=== PATIENT | male | born 1990 | race African-American/Black ===

== ENCOUNTER 2017-12-29 15:30 | Inpatient (IN) | payer BC ==
[2017-12-29 17:29] VITALS: BMI 23.5
--- NOTE | 2017-12-29 20:06 | HP ---
CIWA Score - CIWA Score Nausea/Vomitin-No Nausea/No Vomiting Muscle Tremors: 4-Moderate,w/Arms Extend Anxiety: 4-Mod. Anxious/Guarded Agitation: 4-Moderately Restless Paroxysmal Sweats: 3 Orientation: 3-Disoriented Date>2 days Tacttile Disturbances: 0-None Auditory Disturbances: 0-None Visual Disturbances: 0-None Headache: 0-None Present CIWA-Ar Total Score: 18 Admission ROS BHS - HPI Chief Complaint: SEEKING DETOX FOR ALCOHOL R/T WITHDRAWAL SX'S Allergies/Adverse Reactions: Allergies Allergy/AdvReac Type Severity Reaction Status Date / Time bromide salts Allergy Verified 12/29/17 17:53 iodine Allergy Verified 12/29/17 17:54 lithium Allergy Swelling Verified 12/29/17 17:52 shellfish derived Allergy Verified 12/29/17 17:54 History of Present Illness: 27 Y.O. MALE WITH HX/O ALCOHOLISM HERE [facility] DETOX. CLIENT WAS REFERRED BY HIS RESIDENCE. HE REPORTS THIS IS HIS FIRST TIME IN INPATIENT TXMENT. DENIES ANY SIGNIFICANT PERIOD OF CLEAN TIME. DENIES HX/O SEIZURES, BLACK OUTS, A/V HALLUCINATIONS AND SI/HI. DENIES LEGALS Exam Limitations: No Limitations - Ebola screening Have you traveled outside of the country in the last 21 days: No (N) Have you had contact with anyone from an Ebola affected area: No Have you been sick,other than usual withdrawal symptoms: No Do you have a fever: No - Review of Systems Constitutional: No Symptoms Reported EENT: reports: No Symptoms Reported Respiratory: reports: No Symptoms reported Cardiac: reports: No Symptoms Reported GI: reports: No Symptoms Reported : reports: No Symptoms Reported Musculoskeletal: reports: No Symptoms Reported Integumentary: reports: No Symptoms Reported Neuro: reports: No Symptoms reported Endocrine: reports: No Symptoms Reported Hematology: reports: No Symptoms Reported Psychiatric: reports: other (SCHIZOPHRENIA, PARANOID DELUSIONAL) Other Systems: Reviewed and Negative Patient History - Patient Medical History Hx Anemia: No Hx Asthma: No Hx Chronic Obstructive Pulmonary Disease (COPD): No Hx Cancer: No Hx Cardiac Disorders: No Hx Congestive Heart Failure: No Hx Hypertension: No Hx Hypercholesterolemia: No Hx Pacemaker: No HX Cerebrovascular Accident: No Hx Seizures: No Hx Dementia: No Hx Diabetes: No Hx Gastrointestinal Disorders: No Hx Liver Disease: No Hx Genitourinary Disorders: No Hx Sexually Transmitted Disorders: No Hx Renal Disease (ESRD): No Hx Thyroid Disease: No Hx Human Immunodeficiency Virus (HIV): No Hx Hepatitis C: No Hx Depression: No Hx Suicide Attempt: No Hx Bipolar Disorder: No Hx Schizophrenia: Yes (NOT ON MEDICATION) - Patient Surgical History Past Surgical History: No Hx Neurologic Surgery: No Hx Cataract Extraction: No Hx Cardiac Surgery: No Hx Lung Surgery: No Hx Breast Surgery: No Hx Breast Biopsy: No Hx Abdominal Surgery: No Hx Appendectomy: No Hx Cholecystectomy: No Hx Genitourinary Surgery: No Hx Section: No Hx Orthopedic Surgery: No Anesthesia Reaction: No - PPD History Previous Implant?: Yes Documented Results: Negative w/o proof Implanted On Prior [facility] Admission?: No PPD to be Administered?: Yes - Smoking Cessation Smoking history: Former smoker Have you smoked in the past 12 months: No Hx Chewing Tobacco Use: No Initiated information on smoking cessation: No - Substance & Tx. History Hx Alcohol Use: Yes Hx Substance Use: Yes Substance Use Type: Alcohol Hx Substance Use Treatment: No - Substances Abused Alcohol Route: Oral Frequency: Daily Amount used: 1 six pack of budlApogenixt beer, Age of first use: 13 Date of Last Use: 12/27/17 Family Disease History - Family Disease History Family History: Denies Admission Physical Exam BHS - Vital Signs Vital Signs: Vital Signs - 24 hr 12/29/17 17:28 Temperature 98.7 F Pulse Rate 110 H Respiratory 19 Rate Blood Pressure 115/82 - Physical General Appearance: Yes: Appropriately Dressed, Tremorous (FELT), Anxious HEENTM: Yes: EOMI, Normal ENT Inspection, Normocephalic, Normal Voice, FREDA, Pharynx Normal Respiratory: Yes: Chest Non-Tender, Lungs Clear, Normal Breath Sounds, No Respiratory Distress, No Accessory Muscle Use Neck: Yes: No masses,lesions,Nodules, Supple, Trachea in good position Breast: Yes: Breast Exam Deferred Cardiology: Yes: Regular Rhythm, Regular Rate, S1, S2 Abdominal: Yes: Normal Bowel Sounds, Non Tender, Flat, Soft Genitourinary: Yes: Within Normal Limits Back: Yes: Normal Inspection Musculoskeletal: Yes: full range of Motion, Gait Steady Extremities: Yes: Normal Capillary Refill, Normal Inspection, Normal Range of Motion, Non-Tender, Tremors (FELT) Neurological: Yes: Alert, Motor Strength 5/5, Disoriented (TO DATE) Integumentary: Yes: Normal Color, Warm, Moist Lymphatic: Yes: Within Normal Limits - Diagnostic (1) Alcohol dependence with uncomplicated withdrawal Current Visit: Yes Status: Acute (2) Schizophrenia Current Visit: Yes Status: Suspected Qualifiers: Schizophrenia type: unspecified Qualified Code(s): F20.9 - Schizophrenia, unspecified Cleared for Admission [facility] - Detox or Rehab [facility] Level of Care: Medically Managed Detox Regimen/Protocol: Brinda Claeared for Rehab Admission: No S Breath Alcohol Content Breath Alcohol Content: 0 Urine Drug Screen - Results Drug Screen Negative: Yes
[2017-12-29] MEDS ORDERED: P-EPHED 60MG/TRIPROLIDI 2.5MG TABLET PO PRN (20:18)
[2017-12-29] MEDS ORDERED: MAG HYDROX/AL HYDROX/SIMETH 30 ML UNIT-DOSE CUP PO PRN (20:18)
[2017-12-29] MEDS ORDERED: MENTHOL/PHENOL 1 EACH UD MM PRN (20:18)
[2017-12-29] MEDS ORDERED: MAGNESIUM HYDROX 2400MG/30ML ORAL SUSPENSION 30 ML CUP PO PRN (20:18)
[2017-12-29] MEDS ORDERED: chlordiazePOXIDE HCL 25 MG CAPSULE PO PRN (20:18)
[2017-12-29] MEDS ORDERED: MAGNESIUM CITRATE 300 ML BOTTLE PO PRN (20:18)
[2017-12-29] MEDS ORDERED: LOPERAMIDE HCL 2 MG CAPSULE PO PRN (20:18)
[2017-12-29] MEDS ORDERED: guaiFENesin/D-METHORPHAN HB 10 ML UNIT-DOSE CUPS PO PRN (20:18)
[2017-12-29] MEDS ORDERED: hydrOXYzine PAMOATE 50 MG CAPSULE (FP) PO PRN (20:18)
[2017-12-29] MEDS ORDERED: IBUPROFEN 400 MG TABLET (FP) PO PRN (20:18)
[2017-12-29] MEDS ORDERED: ACETAMINOPHEN 325 MG TABLET (FP) PO PRN (20:18)
[2017-12-29] MEDS ORDERED: MELATONIN 5 MG TABLETS PO PRN (22:00)
[2017-12-29] MEDS: THIAMINE HCL 100 MG TABLET (FP) PO SCH (22:31)
[2017-12-29] MEDS: chlordiazePOXIDE HCL 25 MG CAPSULE PO SCH (22:32)
[2017-12-30 02:25] LABS: URINE APPEARANCE CLEAR; URINE BILIRUBIN NEGATIVE (<2.0 mg/dL); URINE COLOR AMBER; URINE GLUCOSE (UA) NEGATIVE (NEGATIVE); URINE KETONE TRACE (NEGATIVE); URINE LEUK ESTERASE NEGATIVE (NEGATIVE); URINE NITRITE NEGATIVE (NEGATIVE); URINE PROTEIN NEGATIVE (NEGATIVE)
[2017-12-30] MEDS: chlordiazePOXIDE HCL 25 MG CAPSULE PO SCH ×4 (05:30→22:19)
--- NOTE | 2017-12-30 09:02 | EKG ---
Test Reason : Blood Pressure : / mmHG Vent. Rate : 078 BPM Atrial Rate : 078 BPM P-R Int : 130 ms QRS Dur : 094 ms QT Int : 346 ms P-R-T Axes : 061 071 060 degrees QTc Int : 394 ms NORMAL SINUS RHYTHM ST ELEVATION, CONSIDER EARLY REPOLARIZATION NO PREVIOUS ECGS AVAILABLE Confirmed by WOLF FORTE MD ([id number]) on 12/30/2017 9:02:14 AM Referred By: Confirmed By:WOLF FORTE MD
--- NOTE | 2017-12-30 09:21 | CONSULT ---
[facility] Psychiatric Consult - Data Date of interview: 12/30/17 Admission source: [facility] Identifying data: Patient is a 27 year old male, engaged, unemployed, domiciled , and supported by public assistance. This is patient's first admission to detox at [facility]. Patient admitted to for alcohol dependence. Substance Abuse History: Smoking Cessation. Smoking history: Former smoker. Have you smoked in the past 12 months: No. Hx Chewing Tobacco Use: No. Initiated information on smoking cessation: No. - Substance & Tx. History. Hx Alcohol Use: Yes. Hx Substance Use: Yes. Substance Use Type: Alcohol. Hx Substance Use Treatment: No. - Substances Abused. Alcohol. Route: Oral. Frequency: Daily. Amount used: 1 six pack of budlght beer,. Age of first use: 13. Date of Last Use: 12/27/17 Medical History: Denies. Psychiatric History: Patient reports multilple psychiatric hospitalizations, most recently three years ago at [facility] in [place]. Pt. is also known to [facility], and to hospitals in [facility] and [place]. Patient's first psychiatric contact was in 2007 at [facility] which resulted in diagnosis of bipolar disorder Pt. was then diagnosed with schizophrenia at 20 years of age. OPD is provided in [place]. Pt. is currently prescribed Invega 9 mg. Pt. has had trials of zyprexa 20mg, risperdal 6mg and neudexa in the past. Pt. denies h/o suicide attempt. Pt. currently denies thought to hurt self others. Physical/Sexual Abuse/Trauma History: Denies. Mental Status Exam - Mental Status Exam Alert and Oriented to: Time, Place, Person Cognitive Function: Good Patient Appearance: Unkempt Mood: Hopeful Affect: Mood Congruent Patient Behavior: Cooperative Speech Pattern: Appropriate Voice Loudness: Normal Thought Process: Intact, Goal Oriented Hallucinations: Denies Suicidal Ideation: Denies Homicidal Ideation: Denies Insight/Judgement: Poor Sleep: Fair Appetite: Fair Muscle strength/Tone: Normal Gait/Station: Normal Psychiatric Findings - Problem List ([place] 1, 2,3) (1) Alcohol dependence with uncomplicated withdrawal Current Visit: Yes Status: Acute (2) Schizophrenia Current Visit: Yes Status: Chronic Qualifiers: Schizophrenia type: unspecified Qualified Code(s): F20.9 - Schizophrenia, unspecified - Initial Treatment Plan Initial Treatment Plan: Psychoeducation provided. Detoxification in progress. Pt. agreeable to accepting risperdal 2mg BID while in detox. Pt. reports past h/ o of accepting risperdal 6mg daily with no history of side effects. Benefits and side effects discussed. Verbal consent given.
[2017-12-30] MEDS: PRENATAL VITAMINS W/ FOLIC ACID TABLET (FP) PO SCH (10:05)
[2017-12-30] MEDS: risperiDONE 2 MG TABLET PO SCH ×2 (13:00→22:19)
--- NOTE | 2017-12-30 16:59 | PN ---
[facility] CIWA - CIWA Score Nausea/Vomitin-No Nausea/No Vomiting Muscle Tremors: 3 Anxiety: 5 Agitation: 4-Moderately Restless Paroxysmal Sweats: 3 Orientation: 0-Oriented Tacttile Disturbances: 2-Mild Itch/Numbness/Burn Auditory Disturbances: 0-None Visual Disturbances: 2-Mild Sensitivity Headache: 0-None Present CIWA-Ar Total Score: 19 BHS Progress Note (SOAP) Subjective: Body Aches, Tremors, Anxious, Sweating. Objective: PATIENT A & O X 3, OBSERVED AMBULATING ON UNIT. NO ACUTE DISTRESS. 12/30/17 16:57 Vital Signs Temperature 97.6 F 12/30/17 13:30 Pulse Rate 119 H 12/30/17 13:30 Respiratory Rate 18 12/30/17 13:30 Blood Pressure 115/68 12/30/17 13:30 O2 Sat by Pulse Oximetry (%) Laboratory Tests 12/30/17 00:33 Urine Color Radha Urine Appearance Clear Urine pH 5.0 Ur Specific [place] 1.027 Urine Protein Negative Urine Glucose (UA) Negative Urine Ketones Trace H Urine Blood Negative Urine Nitrite Negative Urine Bilirubin Negative Urine Urobilinogen 2.0 Ur Leukocyte Esterase Negative UA RESULTS NOTED. DESPITE ENCOURAGEMENT FROM EDUCATION REP, PATIENT REFUSED TO HAVE OTHER ADMISSION LABS DRAWN. Assessment: 12/30/17 16:58 WITHDRAWAL SYMPTOMS. Plan: CONTINUE DETOX.
[2017-12-30] MEDS: THIAMINE HCL 100 MG TABLET (FP) PO SCH (22:19)
[2017-12-31] MEDS: chlordiazePOXIDE HCL 25 MG CAPSULE PO SCH ×3 (05:32→18:02)
[2017-12-31] MEDS: PRENATAL VITAMINS W/ FOLIC ACID TABLET (FP) PO SCH (10:09)
[2017-12-31] MEDS: risperiDONE 2 MG TABLET PO SCH ×2 (10:09→22:18)
--- NOTE | 2017-12-31 16:31 | PN ---
[facility] CIWA - CIWA Score Nausea/Vomitin-No Nausea/No Vomiting Muscle Tremors: 4-Moderate,w/Arms Extend Anxiety: 5 Agitation: 4-Moderately Restless Paroxysmal Sweats: No Perspiration Orientation: 0-Oriented Tacttile Disturbances: 1-Very Mild Itch/Numbness Auditory Disturbances: 0-None Visual Disturbances: 2-Mild Sensitivity Headache: 0-None Present CIWA-Ar Total Score: 16 BHS Progress Note (SOAP) Subjective: Tremors, Anxious, Interrupted Sleep. Objective: PATIENT A & O X 3, OBSERVED AMBULATING ON UNIT. NO ACUTE DISTRESS. 12/31/17 16:30 Vital Signs Temperature 97.0 F L 12/31/17 14:17 Pulse Rate 97 H 12/31/17 14:17 Respiratory Rate 20 12/31/17 14:17 Blood Pressure 106/71 12/31/17 14:17 O2 Sat by Pulse Oximetry (%) Laboratory Tests 12/30/17 00:33 Urine Color Radha Urine Appearance Clear Urine pH 5.0 Ur Specific [place] 1.027 Urine Protein Negative Urine Glucose (UA) Negative Urine Ketones Trace H Urine Blood Negative Urine Nitrite Negative Urine Bilirubin Negative Urine Urobilinogen 2.0 Ur Leukocyte Esterase Negative UA RESULTS NOTED. PATIENT REFUSED TO HAVE OTHER ADMISSION LABS DRAWN. Assessment: 12/31/17 16:31 WITHDRAWAL SYMPTOMS. Plan: CONTINUE DETOX.
[2017-12-31] MEDS: chlordiazePOXIDE 5 MG CAPSULE PO SCH (22:18)
[2017-12-31] MEDS: THIAMINE HCL 100 MG TABLET (FP) PO SCH (22:18)
[2018-01-01] MEDS: chlordiazePOXIDE 5 MG CAPSULE PO SCH ×3 (05:16→17:53)
[2018-01-01] MEDS: NICOTINE POLACRILEX 2 MG GUM BUC PRN ×5 (05:18→22:12)
[2018-01-01] MEDS: PRENATAL VITAMINS W/ FOLIC ACID TABLET (FP) PO SCH (10:05)
[2018-01-01] MEDS: risperiDONE 2 MG TABLET PO SCH ×2 (10:05→22:10)
--- NOTE | 2018-01-01 12:27 | PN ---
S Progress Note (SOAP) Subjective: ALERT O X 3. PT IS OOB AMBULATING WITH STEADY GAIT. PT SEEN DOING MULTIPLE LAPSE ROUND THE UNIT HALLWAYS. CALM AND REPORTS MEDS EFFECTIVE. Objective: 01/01/18 12:27 Vital Signs 01/01/18 01/01/18 06:12 09:29 Temperature 97.3 F L 97.2 F L Pulse Rate 86 90 Respiratory 16 20 Rate Blood Pressure 110/73 137/87 Laboratory Tests 12/30/17 00:33 Urine Color Radha Urine Appearance Clear Urine pH 5.0 Ur Specific [place] 1.027 Urine Protein Negative Urine Glucose (UA) Negative Urine Ketones Trace H Urine Blood Negative Urine Nitrite Negative Urine Bilirubin Negative Urine Urobilinogen 2.0 Ur Leukocyte Esterase Negative PT REFUSED OTHER LABS Assessment: 01/01/18 12:27 WITHDRAWAL SX Plan: CONTINUE DETOX
[2018-01-01 21:40] VITALS: PULSE 95
[2018-01-01] MEDS: THIAMINE HCL 100 MG TABLET (FP) PO SCH (22:10)
[2018-01-01] MEDS: chlordiazePOXIDE HCL 10 MG CAPSULE PO SCH (22:10)
[2018-01-02] MEDS: chlordiazePOXIDE HCL 10 MG CAPSULE PO SCH (05:23)
[2018-01-02] MEDS: NICOTINE POLACRILEX 2 MG GUM BUC PRN (05:25)
[2018-01-02 06:22] VITALS: BP 111/76; TEMP 96.5
--- NOTE | 2018-01-02 10:42 | PN ---
BHS Progress Note (SOAP) Subjective: Denies any complaints Objective: 01/02/18 10:39 Denies any complain Assessment: 01/02/18 10:41 Detox successfully completed Plan: For d/c
--- NOTE | 2018-01-02 10:54 | DS ---
[facility] Detox Discharge Summary Admission Date: 12/29/17 Discharge Date: 01/02/18 - History Additional Comments: Pt for discharge Going back to his program/residence [facility] Will attend AA meetings No prescriptions needed. A & O x 3, gait steady, verbalized feeling great and being able to use the coping skills he learnt here. Pertinent Past History: denies - Physical Exam Results Vital Signs: Vital Signs Temperature 96.5 F L 01/02/18 06:22 Pulse Rate 95 H 01/02/18 06:22 Respiratory Rate 18 01/02/18 06:22 Blood Pressure 111/76 01/02/18 06:22 O2 Sat by Pulse Oximetry (%) Pertinent Admission Physical Exam Findings: withdrawal - Treatment Hospital Course: Detox Protocol Followed, Detoxed Safely, Responded well, Discharged Condition Good - Medication Discharge Medications: Ambulatory Orders NK [No Known Home Medication] 12/29/17 - Diagnosis (1) Alcohol dependence with uncomplicated withdrawal Status: Acute (2) Schizophrenia Status: Chronic Qualifiers: Schizophrenia type: unspecified Qualified Code(s): F20.9 - Schizophrenia, unspecified - AMA Did Patient Leave Against Medical Advice: No
== END 2018-01-02 09:17 | disposition home or self-care (01) | DRG 775 ==
LOC: YASAS 15:30 → Y3N 18:48
PROVIDERS: ADMIT Family Medicine Addiction Medicine; ATTEND Family Medicine Addiction Medicine
PROC: HZ2ZZZZ Detoxification Services for Substance Abuse Treatment (ICD-10-PCS; principal; 2017-12-29)
DX: F10.230 Alcohol dependence with withdrawal, uncomplicated (principal); F20.9 Schizophrenia, unspecified; Z87.891 Personal history of nicotine dependence; Z91.013 Allergy to seafood; Z91.048 Other nonmedicinal substance allergy status
CPT/HCPCS: 81003; 93005; 93010